=== PATIENT | male | born 1990 | race Caucasian/White ===

== ENCOUNTER 2020-11-29 09:31 | Emergency (ER) | payer OTHER, BC, SELFPAY ==
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
[2020-11-29 09:40] VITALS: BP 146/81; PULSE 87; RESP 16; TEMP 36.6; O2SAT 100
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
[2020-11-29] MEDS: TETANUS,DIPHTHERIA,AC PERTUSSIS ADULT (0.5 ML) BOOSTRIX IM (10:43)
[2020-11-29] MEDS: MORPHINE SULFATE (*CRX) 4 MG/ML INJ IV PUSH (10:43)
[2020-11-29] MEDS: ONDANSETRON INJ 4 MG/2 ML VIAL IV PUSH (10:43)
[2020-11-29 10:51] VITALS: RESP 20; O2SAT 98
[2020-11-29 11:30] VITALS: BP 129/85; PULSE 64; RESP 12; O2SAT 99
[2020-11-29 12:19] VITALS: BP 136/83; PULSE 64; RESP 12; O2SAT 99
== END 2020-11-29 12:21 | disposition home or self-care (01) ==
PROVIDERS: Emergency Provider Emergency Medicine
DX: S02.652A Fracture of angle of left mandible, initial encounter for closed fracture (principal); S02.601A Fracture of unspecified part of body of right mandible, initial encounter for closed fracture; Z23 Encounter for immunization; K02.9 Dental caries, unspecified; Y04.2XXA Assault by strike against or bumped into by another person, initial encounter; F17.200 Nicotine dependence, unspecified, uncomplicated
CPT/HCPCS: 70486; 71046; 71100; 90471; 90715; 96372; 96374; 96375; 99284; J2270; J2405